=== PATIENT | female | born 1955 | race Caucasian/White ===

== ENCOUNTER 2016-12-12 05:44 | Inpatient (IN) | payer OTHER ==
[~2016-12-12] VITALS: Ht 167.6 cm; Wt 57.7 kg
[2016-12-12] VITALS (23 sets, daily range): BP systolic 86–146; BP diastolic 59–85; PULSE 72–84; RESP 15–22; Ht 167.6 cm; Wt 57.7 kg
[~2016-12-12 05:44] MED LIST: CEFAZOLIN 2 GM/50 ML (PMX) 50 ML IVPB ONE; LACTATED RINGER'S 1,000 ML IV* ONE
--- NOTE | 2016-12-12 06:51 | HPN ---
Date/Time of Note Date/Time of Note DATE: 12/12/16 TIME: 06:51 Interval H&P Admission Note Pt. seen H&P reviewed: No system changes JOSE LUIS OSBORNE MD Dec 12, 2016 06:51
[2016-12-12] MEDS ORDERED: FENTAnyl 50 MCG/ML VIAL ONE (06:55)
[2016-12-12] MEDS ORDERED: OMEP20CA16 PO (07:00)
[2016-12-12] MEDS ORDERED: LORA10TA3 PO (07:00)
[2016-12-12] MEDS ORDERED: GABA400C14 PO (07:00)
[2016-12-12] MEDS ORDERED: EZET10TA3 PO (07:00)
[2016-12-12] MEDS ORDERED: ALEN70TA30 PO (07:00)
[2016-12-12] MEDS ORDERED: ASPI-535 PO (07:00)
[2016-12-12] MEDS ORDERED: PRAV40TA76 PO (07:00)
[2016-12-12] MEDS ORDERED: DULO60CA6 PO (07:00)
[2016-12-12] MEDS ORDERED: MELO-110 PO (07:00)
[2016-12-12] MEDS ORDERED: PHENYLephrine (100 MCG/ML) 5ML SYG ONE ×3 (07:32→09:27)
[2016-12-12] MEDS ORDERED: BUPIVACAINE 0.25% (MPF) 10 ML 10 ML VIAL ONE (07:39)
[2016-12-12] MEDS ORDERED: GELATIN SIZE 100 SPONGE ONE (07:39)
[2016-12-12] MEDS ORDERED: THROMBIN 5000 UNIT VIAL ONE (07:40)
[2016-12-12] MEDS ORDERED: POLYMYXIN/BACITRACIN 1L IRRIG ONE (07:40)
--- NOTE | 2016-12-12 07:48 | RADRPT ---
PROCEDURE: XR Lumbar Spine one view. CLINICAL INDICATION: Low back pain. Intraoperative. TECHNIQUE: Prone portable cross-table lateral. COMPARISON: No prior studies are available for comparison. FINDINGS: For the purposes of this report, the last apparent true disc level is considered to be L5-S1. Based on this, the posterior needle markers are present at the L3-4 and L4-5 levels. IMPRESSION: 1. Intraoperative imaging as described above. RPTAT: QQ .Rd Lopez MD, MD Date Time Electronically viewed and signed by .Rd Lopez MD, MD on 12/12/2016 07:48 .R/
[2016-12-12] MEDS ORDERED: NEOSTIGMINE 3 MG/3 ML SYRINGE ONE (07:56)
[2016-12-12] MEDS ORDERED: GLYCOPYRROLATE 0.4 MG INJ ONE (07:56)
[2016-12-12] MEDS ORDERED: PROPOFOL 40 ML ONE (07:56)
[2016-12-12] MEDS ORDERED: SUCCINYLCHOLINE CHLORIDE 100 MG/5 ML SYG IV ONE (07:56)
[2016-12-12] MEDS ORDERED: ROCURONIUM 50 MG INJ ONE (07:56)
[2016-12-12] MEDS ORDERED: LIDOCAINE 2% (SDV) 5 ML INJ ONE (07:56)
[2016-12-12] MEDS ORDERED: FENTAnyl 50 MCG/ML VIAL IV PRN ×2 (08:00)
[2016-12-12] MEDS ORDERED: HYDROmorphONE (0.2 MG/ML) 10ML SYG IV PRN ×2 (08:00)
[2016-12-12] MEDS ORDERED: DIPHENHYDRAMINE 50 MG INJ IV PRN (08:00)
[2016-12-12] MEDS ORDERED: MEPERIDINE 25 MG INJ IV PRN (08:00)
[2016-12-12] MEDS ORDERED: ONDANSETRON 4 MG INJ IV PRN ×2 (08:00→10:30)
[2016-12-12] MEDS ORDERED: METOCLOPRAMIDE 10 MG INJ IV PRN (08:00)
[2016-12-12] MEDS ORDERED: SUGAMMADEX SODIUM 200 MG/2 ML VIAL IV ONE (09:23)
[2016-12-12] MEDS: HYDROmorphONE (0.2 MG/ML) 10ML SYG IV PRN ×2 (10:07→10:32)
[2016-12-12] MEDS ORDERED: HYDROmorphONE 0.2 MG/ML PCA ONE (10:23)
--- NOTE | 2016-12-12 10:23 | OPR ---
Date/Time of Note Date/Time of Note DATE: 12/12/16 TIME: 10:14 Operative Report Preoperative Diagnosis Lumbar spinal stenosis at L3-L4 and L5 Herniated lumbar disc L4-5 on the right Postoperative Diagnosis Same Operation/Procedure Performed Central decompressive laminectomy at L3 Central decompressive laminectomy at L4 Central decompressive laminectomy at L5 Microdiscectomy L4-5 on the right Medial facetectomy and foraminotomy L3-4 L4-5 and L5-S1 bilaterally Cosmetic wound closure (12 cm) Lateral localizing lumbar radiographs (2) Intraoperative nerve monitoring (2 hours) Surgeon: JOSE LUIS OSBORNE MD assistant professor of philosophy: LASHA WILLSON Anesthesia: general Estimated Blood Loss: 50 - 100 ml's Specimens Spinous processes of L3-L4 and L5 Disc L4-5 on the right Grafts/Implants None Complications: None JOSE LUIS OSBORNE MD Dec 12, 2016 10:23
[2016-12-12] MEDS: HYDROmorphONE 0.2 MG/ML PCA IV SCH ×2 (10:26→15:56)
[2016-12-12] MEDS ORDERED: CEPASTAT LOZENGE MT PRN (10:30)
[2016-12-12] MEDS ORDERED: HYDROCODONE/APAP (5/325) TAB PO PRN (10:30)
[2016-12-12] MEDS ORDERED: TRIMETHOBENZAMIDE 100 MG/ML VIAL IM PRN (10:30)
[2016-12-12] MEDS ORDERED: DIPHENHYDRAMINE 50 MG CAP PO PRN (10:30)
[2016-12-12] MEDS ORDERED: NALOXONE (0.4 MG/ML) INJ IV PRN (10:30)
[2016-12-12] MEDS ORDERED: NACL 0.9% 3 ML SYG IV SCH (10:30)
[2016-12-12] MEDS ORDERED: AL HYDROX/MG HYDROX/SIMETH 30 ML CUP PO PRN (10:30)
[2016-12-12] MEDS ORDERED: PROCHLORPERAZINE 10 MG TAB PO PRN (10:30)
[2016-12-12] MEDS ORDERED: DIAZEPAM 5 MG TAB PO PRN (10:30)
[2016-12-12] MEDS ORDERED: DIAZEPAM 5 MG/ML SYG IM PRN (10:30)
[2016-12-12] MEDS ORDERED: ACETAMINOPHEN 325 MG TAB PO PRN (10:30)
[2016-12-12] MEDS ORDERED: BETHANECHOL 25 MG TAB PO PRN (10:30)
[2016-12-12] MEDS ORDERED: ZOLPIDEM 5 MG TAB PO PRN (10:30)
[2016-12-12] MEDS: CEFAZOLIN 1 GM/50 ML (PMX) 50 ML IVPB SCH ×2 (13:15→19:23)
[2016-12-12] MEDS: DEXTROSE 5%-0.45% NACL 1,000 ML IV SCH ×2 (13:20→20:34)
--- NOTE | 2016-12-12 13:30 | RADRPT ---
PROCEDURE: Intraoperative XR. CLINICAL INDICATION: Intraoperative radiograph during lumbar laminectomy. TECHNIQUE: Spot intraoperative lateral lumbar x-ray image was provided. The images were reviewed on a high-resolution PACS workstation. COMPARISON: 12/12/2016 FINDINGS: Spot intraoperative lateral lumbar view were provided during lumbar laminectomy. The images demonst rate postoperative changes at L3-4, L4-5 and L5-S1 status post laminectomy. There is severe narrowin g of the L5-S1 discs with associated discogenic endplate changes. IMPRESSION: 1. Spot intraoperative lateral lumbar view during L3-4, L4-5 and L5-S1 laminectomy were provided. 2. Please see operative report of the same day for further information. RPTAT: HGAS .Jm Britton MD, Date Time Electronically viewed and signed by .Jm Britton MD, on 12/12/2016 13:29 .S/
--- NOTE | 2016-12-12 13:46 | CONS ---
Date/Time of Note Date/Time of Note DATE: 12/12/16 TIME: 13:41 Assessment/Plan Assessment/Plan Problems: (1) Status post lumbar laminectomy Status: Acute Comment: She is immediately postop and doing well. Continue careful observation support and rehabilitation (2) Osteoporosis Status: Chronic Comment: This is noted. Presently she is off of the alendronate. This should be resumed after she has gone through some brief rehabilitation and healing Qualifiers: Qualified Code: M81.0 - Age-related osteoporosis without current pathological fracture (3) Hyperlipidemia Status: Chronic Comment: Continue treatment. With omega-3 fish oil Qualifiers: Qualified Code: E78.2 - Mixed hyperlipidemia (4) Essential hypertension Status: Chronic Comment: Noted and stable. (5) Gastroesophageal reflux disease Status: Chronic Comment: Continue proton pump inhibitor therapy patient Qualifiers: Qualified Code: K21.9 - Gastroesophageal reflux disease without esophagitis Consultation Date/Type/Reason Admit Date/Time Dec 12, 2016 at 05:44 Date of Consultation: Dec 12, 2016 Type of Consultation: Internal medicine Reason for Consultation Postop from lumbar laminectomy; multiple medical problems Referring Provider: JOSE LUIS OSBORNE MD Hx of Present Illness Charming 61-year-old [place] woman who speaks [place] lying in bed postop. She reports she is doing well. Constitutional: no complaints (No fevers chills or sweats) Eyes: no complaints ENT: no complaints Respiratory: no complaints (Specifically denies shortness of breath) Cardiovascular: no complaints (Specifically denies any complaint) Gastrointestinal: no complaints Genitourinary: no complaints Musculoskeletal: no complaints Skin: no complaints Neurologic: no complaints Past Medical History Osteoporosis; mixed hyperlipidemia; lumbar disc disease with radiculopathy and sciatica; gastroesophageal reflux disease; peripheral neuropathy Past Surgical History Past Surgical Hx: no surgical history Family History Significant Family History: no pertinent family hx Social History Alcohol Use: none Smoking Status: Never smoker Drug Use: none Exam/Review of Systems Vital Signs Vitals Vital Signs Date Time Temp Pulse Resp B/P Pulse Ox O2 Delivery O2 Flow Rate FiO2 12/12/16 11:21 98.8 83 18 121/75 100 12/12/16 10:51 Nasal Cannula 2.0 Exam Constitutional: alert, oriented Head: atraumatic, normocephalic Eyes: EOMI, nl conjunctiva, nl lids, nl sclera Neck: non-tender, supple Respiratory: clear to auscultation, normal air movement Cardiovascular: nl pulses, regular rate and rhythm Gastrointestinal: nl liver, spleen, non-tender, soft Musculoskeletal: other (Back pain and presently limited motion immediately postop) Extremities: normal pulses Neurological: COOK RAILROAD II-XII intact, nl mental status, nl speech, nl strength Medications Medications Current Medications Dextrose/Sodium Chloride (D5-1/2ns) 1,000 ml @ 100 mls/hr Q10H IV Last administered on 12/12/16 13:20; Admin Dose 100 MLS/HR; Start 12/12/16 at 10:11 Acetaminophen/ Hydrocodone Bitart ([place] (5/325)) 1 tab Q4H PRN PO PAIN LEVEL 1 -5; Start 12/12/16 at 10:30 Acetaminophen/ Hydrocodone Bitart 2 tab 2 tab Q4H PRN PO PAIN LEVEL 6-10; Start 12/12/16 at 10:30 Cefazolin Sodium (Ancef 1 Gm/50 ml (Pmx)) 50 ml @ 100 mls/hr Q6 IVPB Last administered on 12/12/16 13:15; Admin Dose 100 MLS/HR; Start 12/12/16 at 12:00 ; Stop 12/13/16 at 06:29 Zolpidem Tartrate (Ambien) 5 mg HS PRN PO INSOMNIA; Start 12/12/16 at 10:30 Prochlorperazine (Compazine) 10 mg Q4H PRN PO NAUSEA AND/OR VOMITING; Start at 10:30 Trimethobenzamide HCl (Tigan) 200 mg Q4H PRN IM NAUSEA AND/OR VOMITING; Start 12/12/16 at 10:30 Ondansetron HCl (Zofran Inj) 4 mg Q6H PRN IV NAUSEA AND/OR VOMITING; Start at 10:30 Al Hydrox/Mg Hydrox/Simethicone (Mag-Al Plus) 15 ml Q4H PRN PO CONSTIPATION; Start 12/12/16 at 10:30 Docusate Sodium (Colace) 100 mg BID PO ; Start 12/13/16 at 09:00 Acetaminophen (Tylenol Tab) 650 mg Q4H PRN PO TEMP GREATER THAN 101F OR RECIO; Start 12/12/16 at 10:30 Ascorbic Acid (Vitamin C) 1,000 mg BID PO ; Start 12/13/16 at 09:00 Ferrous Sulfate (Ferrous Sulfate (Ec)) 325 mg TID PO ; Start 12/13/16 at 09:00 Ranitidine HCl (Zantac) 150 mg BID PO ; Start 12/12/16 at 21:00 Diazepam (Valium) 5 mg Q4H PRN PO MUSCLE SPASMS; Start 12/12/16 at 10:30 Diazepam (Valium) 5 mg Q4H PRN IM MUSCLE SPASMS; Start 12/12/16 at 10:30 Phenol (Cepastat Lozenge) 1 lozenge PRN PRN MT SORE THROAT; Start 12/12/16 at 10:30 Bethanechol Chloride (Urecholine) 25 mg PRN PRN PO UNABLE TO VOID; Start at 10:30 Diphenhydramine HCl (Benadryl) 50 mg Q6H PRN PO PRURITUS; Start 12/12/16 at 10: 30 Hydromorphone HCl (Dilaudid FINANCE ADMIN) Q4PCA IV Last administered on 12/12/16t 10:26 ; Admin Dose 6 MG; Start 12/12/16 at 10:30 Naloxone HCl (Narcan) 0.2 mg Q2M PRN IV RR 8 BREATHS/MIN OR LESS; Start at 10:30 Duloxetine HCl (Cymbalta) 60 mg DAILY PO ; Start 12/13/16 at 09:00; Status UNV EZETIMIBE (Zetia) 10 mg DAILY PO ; Start 12/13/16 at 09:00; Status UNV Gabapentin (Neurontin) 400 mg TID PO ; Start 12/12/16 at 21:00; Status UNV Loratadine (Claritin) 10 mg DAILY PO ; Start 12/13/16 at 09:00; Status UNV Pantoprazole (Protonix Tab) 40 mg DAILY@06 PO ; Start 12/13/16 at 06:00; Status UNV Atorvastatin Calcium (Lipitor) 20 mg HS PO ; Start 12/12/16 at 21:00; Status UNV CLAIRE STINSON MD Dec 12, 2016 13:45
--- NOTE | 2016-12-12 14:09 | OPR ---
DATE OF OPERATION: 12/12/2016 PREOPERATIVE DIAGNOSES: 1. Lumbar spinal stenosis at L3, L4, and L5. 2. Herniated disk, L4-5 on the right. POSTOPERATIVE DIAGNOSES: 1. Lumbar spinal stenosis at L3, L4, and L5. 2. Herniated disk, L4-5 on the right. OPERATION PERFORMED: 1. Central decompressive laminectomy at L3. 2. Central decompressive laminectomy at L4. 3. Central decompressive laminectomy at L5. 4. Microdiskectomy, L4-5 on the right. 5. Medial facetectomy and foraminotomy, L3-4, L4-5, L5-S1 bilaterally. 6. Cosmetic wound closure (12 cm). 7. Lateral localized lumbar radiographs (2). 8. Intraoperative spinal cord monitoring (2 hours). SURGEON: Cash Ray MD SALVATIONIST Kourtney Sanchez PA-C ANESTHESIA: General endotracheal. ANESTHESIOLOGIST: Dr. Garcia ESTIMATED BLOOD LOSS: 90 mL, none replaced. DRAINS: Two medium Hemovac drains employed. COMPLICATIONS: None. PERTINENT HISTORY AND PHYSICAL: This is a 61-year-old female with persistent back and lower extremity complaints, right greater than left, which have been unrelieved by conservative management. She has undergone a number of diagnostic studies including an MRI of the lumbar spine which demonstrated multilevel spinal stenosis most severe at L4-L5 with right disk protrusion at that level. Treatment options were discussed with the patient, and she elected to proceed with surgery. OPERATIVE FINDINGS AT SURGERY: Multilevel spinal stenosis at L3, L4, and L5 was confirmed along with a small to moderate central and right paracentral herniation of the L4-5 disk. The baseline intraoperative nerve monitoring revealed a decrease in the left L3 potential of 30%, the L4 potentials bilaterally of 40% and the L5 potentials bilaterally of 40%. These all returned to normal at the completion of surgery. OPERATIVE PROCEDURE: With the patient in supine position after satisfactory induction of general endotracheal anesthesia by Dr. Garcia, the patient was turned to the prone kneeling position onto the Bracey frame. All pressure points were carefully padded. Back was prepped and draped in usual sterile fashion. Athrombic pumps were applied to the legs below the knees to prevent venous stasis during and after procedure. An indwelling Gonzalez catheter was also placed preoperatively to facilitate bladder drainage during and after the procedure. Two spinal needles were placed next to what was felt to be the L4 and L5 spinous processes, and lateral roentgenogram was taken which confirmed anatomic localization. A 12 cm incision was then carried out midline from L3 to sacrum through skin and subcutaneous tissue to the deep fascia after the skin was infiltrated with 0.25% Marcaine without epinephrine for postoperative shoe. Superficial retractors were placed and hemostasis secured with electrocautery. Throughout the procedure, copious amounts of antibacterial irrigating solution were used to periodically irrigate the wound. The fascia was incised in midline with a hot knife and a bilateral subperiosteal dissection carried out from L3 to the sacrum. Deep retractors were placed and deep hemostasis secured with electrocautery. A second intraoperative radiograph was taken with Nadya clamps placed in what was felt to be the spinous process of L3, L4, and L5. This was confirmed with second x-ray. A central decompressive laminectomy at L5, L4, and then L3 was then carried out using a [place] right-angle bone rongeur, Leksell rongeur, Kerrison punches, and curettes. Ligamentum flavum was incised with sharp dissection. The operating microscope was then moved into place. Medial facetectomy and foraminotomy was accomplished at L3-4, L4-5, and L5-S1 bilaterally using small hand osteotome, mallet, Kerrison punches, and curettes. This having been accomplished, attention was turned to the right L4-L5 disk where the L5 nerve root was mobilized medially and protected with D'Bonnie nerve root retractor using microdissection technique. This revealed a herniation of the L4-5 disk centrally and to the right of midline. A 15 blade knife was used to cut a rectangular window in the annulus and posterior longitudinal ligament, and multiple degenerative disk fragments were harvested with pituitary rongeurs and sent to laboratory for pathologic study. Additional fragments were harvested using Dianne curettes. A thorough search of the floor of the canal was made with an arthroscopic probe. No additional fragments were encountered. The epidural hemostasis was secured with bipolar electrocautery on low setting. The anesthesiologist was then asked to perform a Valsalva maneuver at 40 mmHg, and no spinal fluid leak was noted. The wound was then closed in layers over 2 medium Hemovac drains; one below the fascia, one above the fascia. Using #1 Vicryl Stratafix sutures on the deep para-lumbar musculature and deep fascia of the back, 2-0 Stratafix sutures in subcu tissue, and a 4-0 Vicryl subcuticular cosmetic closing suture on the skin. Dermabond and sterile compressive dressings were applied. The patient, having tolerated the procedure well, was then turned to the supine position onto her bed and extubated by Dr. Garcia. She was transported to recovery room in satisfactory condition. At the conclusion of the procedure, sponge, instrument, and needle counts were all correct. NEED FOR TANK BOTTOM ASSEMBLER: During this spinal surgical procedure, my hospital nursing assistant was used to retract and protect the spinal nerves and dural sac. My hospital nursing assistant also employed the suction catheters to evacuate blood from the surgical field to improve visualization of the neural structures. The hospital nursing assistant was medically necessary to facilitate the completion of the surgery in a safe and expeditious manner. [facility] regulations, as well as hospital bylaws, preclude the use of non-licensed health care personnel such as operating room technicians, to perform these functions. Throughout the procedure, neural monitoring was carried out by [employer] [facility] including EMG, SSEP, and MEP monitoring of the L3, L4, L5, and S1 nerve roots bilaterally along with spinal cord potentials. These were interpreted by a neurologist employed by [employer]. Dictated By: CASH DIMAS/ROSA Conf#: [id number] DID#: [id number] CC: CLAIRE STINSON MD;*EndCC* MTDD
[2016-12-12] MEDS: RANITIDINE 150 MG TAB PO SCH (20:34)
[2016-12-12] MEDS: FISH OIL 1,000 MG CAP PO SCH (20:34)
[2016-12-12] MEDS: GABAPENTIN 400 MG CAP PO SCH (20:35)
[2016-12-12] MEDS ORDERED: ATORVASTATIN 20 MG TAB PO SCH (21:00)
[2016-12-13] VITALS: BP 107/56; RESP 18
[2016-12-13] MEDS: CEFAZOLIN 1 GM/50 ML (PMX) 50 ML IVPB SCH ×2 (00:08→05:24)
[2016-12-13 05:21] LABS: HEMATOCRIT 32.5 % (37.0-47.0)
[2016-12-13 05:30] VITALS: BP 97/53; PULSE 74; RESP 17
[2016-12-13 05:50] LABS: CALCIUM 8.4 mg/dl (8.4-10.2); CREATININE 0.56 mg/dl (0.44-1.00); POTASSIUM 3.6 mmol/L (3.5-5.1)
[2016-12-13] MEDS ORDERED: PANTOPRAZOLE (EC) 40 MG TAB PO SCH (06:00)
[2016-12-13] MEDS: DEXTROSE 5%-0.45% NACL 1,000 ML IV SCH (06:11)
--- NOTE | 2016-12-13 07:16 | PN ---
Date/Time of Note Date/Time of Note DATE: 12/13/16 TIME: 07:09 Assessment/Plan Lines/Catheters IV Catheter Type (from Nrsg): Peripheral IV Gonzalez in Place (from Nrsg): Yes Subjective 24 Hr Interval Summary Patient is postop day #1 following a decompressive laminectomy from L3 to the sacrum. She is resting comfortably in bed. Neurovascular structures are intact distally. A.m. labs are satisfactory. She had minimal drainage from her Hemovac, and it was discontinued. Her incision is clean and dry and was redressed. Physical therapy will mobilize her as tolerated, and she may be able to go home later today if cleared by physical therapy. She was given strict discharge precautions and instructions as well as follow-up arrangements. Exam/Review of Systems Vital Signs Vitals Vital Signs Date Time Temp Pulse Resp B/P Pulse Ox O2 Delivery O2 Flow Rate FiO2 12/13/16 05:56 17 12/13/16 05:30 98.0 74 97/53 100 Nasal Cannula 2.0 Intake and Output 12/12/16 12/12/16 12/13/16 15:00 23:00 07:00 Intake Total 1800 ml 850 ml 1700 ml Output Total 670 ml 920 ml 2805 ml Balance 1130 ml -70 ml -1105 ml Results Result Diagram: 12/13/16 0425 12/13/16 0425 JOSE LUIS OSBORNE MD Dec 13, 2016 07:16
[2016-12-13] MEDS: HYDROCODONE/APAP (5/325) TAB PO PRN ×2 (07:44→15:38)
[2016-12-13] MEDS ORDERED: BETHANECHOL 25 MG TAB PO PRN (08:00)
[2016-12-13] MEDS ORDERED: DULOXETINE 30 MG CAP DR PO SCH (09:00)
[2016-12-13] MEDS ORDERED: LORATADINE 10 MG TAB PO SCH (09:00)
[2016-12-13] MEDS ORDERED: EZETIMIBE 10 MG TAB PO SCH (09:00)
[2016-12-13] MEDS ORDERED: DOCUSATE SODIUM 100 MG CAP PO SCH (09:00)
[2016-12-13] MEDS ORDERED: ASCORBIC ACID 500 MG TAB PO SCH (09:00)
[2016-12-13 09:11] VITALS: BP 100/58; RESP 19
[2016-12-13] MEDS: RANITIDINE 150 MG TAB PO SCH (09:48)
[2016-12-13] MEDS: FERROUS SULFATE (EC) 325 MG TAB PO SCH ×2 (09:49→15:34)
[2016-12-13] MEDS: GABAPENTIN 400 MG CAP PO SCH ×2 (09:49→15:34)
[2016-12-13] MEDS: FISH OIL 1,000 MG CAP PO SCH (09:49)
[2016-12-13 10:45] LABS: ADD UMIC NO; UR ASCORBIC ACID NEGATIVE (NEGATIVE); UR BILIRUBIN (Dip) NEGATIVE (NEGATIVE); UR BLOOD (Dip) NEGATIVE (NEGATIVE); UR CLARITY CLEAR (CLEAR); UR COLOR COLORLESS (YELLOW); UR GLUCOSE (Dip) NEGATIVE (NEGATIVE); UR KETONES (Dip) NEGATIVE (NEGATIVE); UR LEUKOCYTE ESTERASE (Dip) NEGATIVE Leu/ul (NEGATIVE); UR NITRITE (Dip) NEGATIVE (NEGATIVE); UR SPECIFIC GRAVITY (Dip) 1.003 (1.003-1.030); UR TOTAL PROTEIN (Dip) NEGATIVE (NEGATIVE); UR UROBILINOGEN (Dip) NEGATIVE (NEGATIVE)
--- NOTE | 2016-12-13 13:11 | CONS ---
Date/Time of Note Date/Time of Note DATE: 12/13/16 TIME: 12:58 Consultation Date/Type/Reason Admit Date/Time Dec 12, 2016 at 05:44 Initial Consult Date 12/13/16 Type of Consultation: Anesthesiology Reason for Consultation Follow up Referring Provider: JOSE LUIS OSBORNE MD 24 HR Interval Summary Free Text/Dictation Pt seen and examined at bedside is POD#1 s/p L3-5 Decompression Laminectomy. Pt states she is doing well and has minimal pain. She is walking around and in good spirits. No N/V/D/C/RECIO. Will continue to follow. Constitutional: improved, no complaints Exam/Review of Systems Vital Signs Vitals Vital Signs Date Time Temp Pulse Resp B/P Pulse Ox O2 Delivery O2 Flow Rate FiO2 12/13/16 09:11 98.9 79 19 100/58 100 12/13/16 05:30 Nasal Cannula 2.0 Intake and Output 12/12/16 12/12/16 12/13/16 14:59 22:59 06:59 Intake Total 1800 ml 850 ml 1700 ml Output Total 670 ml 920 ml 2805 ml Balance 1130 ml -70 ml -1105 ml Results Result Diagram: 12/13/16 0425 12/13/16 0425 Results 24 hrs Laboratory Tests Test 12/13/16 04:25 12/13/16 10:10 Hemoglobin 10.0 L Hematocrit 32.5 L Sodium Level 142 Potassium Level 3.6 Chloride Level 107 Carbon Dioxide Level 28 Anion Gap 11 Blood Urea Nitrogen 6 L Creatinine 0.56 Glucose Level 107 Calcium Level 8.4 Urine Color COLORLESS Urine Clarity CLEAR Urine pH 6.0 Urine Specific [place] 1.003 Urine Ketones NEGATIVE Urine Nitrite NEGATIVE Urine Bilirubin NEGATIVE Urine Urobilinogen NEGATIVE Urine Leukocyte Esterase NEGATIVE Urine Hemoglobin NEGATIVE Urine Glucose NEGATIVE Urine Total Protein NEGATIVE Medications Medications Current Medications Dextrose/Sodium Chloride (D5-1/2ns) 1,000 ml @ 100 mls/hr Q10H IV Last administered on 12/12/16t 20:34; Admin Dose 100 MLS/HR; Start 12/12/16 at 10:11 Acetaminophen/ Hydrocodone Bitart ([place] (5/325)) 1 tab Q4H PRN PO PAIN LEVEL 1 -5; Start 12/12/16 at 10:30 Acetaminophen/ Hydrocodone Bitart ([place] (5/325)) 2 tab Q4H PRN PO PAIN LEVEL 6 -10 Last administered on 12/13/16 07:44; Admin Dose 2 TAB; Start 12/12/16 at 10 :30 Zolpidem Tartrate (Ambien) 5 mg HS PRN PO INSOMNIA; Start 12/12/16 at 10:30 Prochlorperazine (Compazine) 10 mg Q4H PRN PO NAUSEA AND/OR VOMITING; Start at 10:30 Trimethobenzamide HCl (Tigan) 200 mg Q4H PRN IM NAUSEA AND/OR VOMITING; Start 12/12/16 at 10:30 Ondansetron HCl (Zofran Inj) 4 mg Q6H PRN IV NAUSEA AND/OR VOMITING Last administered on 12/12/16 16:03; Admin Dose 4 MG; Start 12/12/16 at 10:30 Al Hydrox/Mg Hydrox/Simethicone (Mag-Al Plus) 15 ml Q4H PRN PO CONSTIPATION; Start 12/12/16 at 10:30 Docusate Sodium (Colace) 100 mg BID PO Last administered on 12/13/16 09:48; Admin Dose 100 MG; Start 12/13/16 at 09:00 Acetaminophen (Tylenol Tab) 650 mg Q4H PRN PO TEMP GREATER THAN 101F OR RECIO; Start 12/12/16 at 10:30 Ascorbic Acid (Vitamin C) 1,000 mg BID PO Last administered on 12/13/16 09:49 ; Admin Dose 1,000 MG; Start 12/13/16 at 09:00 Ferrous Sulfate (Ferrous Sulfate (Ec)) 325 mg TID PO Last administered on 09:49; Admin Dose 325 MG; Start 12/13/16 at 09:00 Ranitidine HCl (Zantac) 150 mg BID PO Last administered on 12/13/16 09:48; Admin Dose 150 MG; Start 12/12/16 at 21:00 Diazepam (Valium) 5 mg Q4H PRN PO MUSCLE SPASMS; Start 12/12/16 at 10:30 Diazepam (Valium) 5 mg Q4H PRN IM MUSCLE SPASMS; Start 12/12/16 at 10:30 Phenol (Cepastat Lozenge) 1 lozenge PRN PRN MT SORE THROAT; Start 12/12/16 at 10:30 Bethanechol Chloride (Urecholine) 25 mg PRN PRN PO UNABLE TO VOID; Start at 10:30 Diphenhydramine HCl (Benadryl) 50 mg Q6H PRN PO PRURITUS; Start 12/12/16 at 10: 30 Hydromorphone HCl (Dilaudid PIT [employer]W SUPPORT WORKER) Q4PCA IV Last administered on 12/12/16 15:56 ; Admin Dose 6 MG; Start 12/12/16 at 10:30 Naloxone HCl (Narcan) 0.2 mg Q2M PRN IV RR 8 BREATHS/MIN OR LESS; Start at 10:30 Duloxetine HCl (Cymbalta) 60 mg DAILY PO Last administered on 12/13/16 09:49; Admin Dose 60 MG; Start 12/13/16 at 09:00 EZETIMIBE (Zetia) 10 mg DAILY PO Last administered on 12/13/16 09:49; Admin Dose 10 MG; Start 12/13/16 at 09:00 Gabapentin (Neurontin) 400 mg TID PO Last administered on 12/13/16 09:49; Admin Dose 400 MG; Start 12/12/16 at 21:00 Loratadine (Claritin) 10 mg DAILY PO Last administered on 12/13/16 09:48; Admin Dose 10 MG; Start 12/13/16 at 09:00 Pantoprazole (Protonix Tab) 40 mg DAILY@06 PO Last administered on 12/13/16 05 :24; Admin Dose 40 MG; Start 12/13/16 at 06:00 Atorvastatin Calcium (Lipitor) 20 mg HS PO Last administered on 12/12/16 20:35 ; Admin Dose 20 MG; Start 12/12/16 at 21:00 Fish Oil (Fish Oil) 2,000 mg BID PO Last administered on 12/13/16 09:49; Admin Dose 2,000 MG; Start 12/12/16 at 21:00 Bethanechol Chloride (Urecholine) 25 mg PRN PRN PO UNABLE TO VOID; Start at 08:00 ANAMARIA EVANS Dec 13, 2016 13:10
[2016-12-13] MEDS ORDERED: FER325 PO (15:50)
--- NOTE | 2016-12-13 15:52 | PDOCDIS ---
Discharge Instructions DIAGNOSIS Discharge Diagnosis Lumbar spinal stenosis; status post lumbar laminectomy; essential hypertension; hyperlipidemia; gastroesophageal reflux disease CONDITION Patient Condition: Fair HOME CARE INSTRUCTIONS: Diet Instructions: Regular ACTIVITY: Activity Restrictions: Slowly Increase Activity Rest between Activity Avoid heavy lifting Do not Drive Bathing Restrictions: Shower FOLLOW UP/APPOINTMENTS Follow-up Plan Follow-up with surgeon in 1-2 weeks postop CLAIRE STINSON MD Dec 13, 2016 15:52
== END 2016-12-13 16:30 | disposition home or self-care (01) | DRG 520 ==
LOC: REC 05:44 → MS1 10:44
PROVIDERS: ADMIT Orthopaedic Surgery; ATTEND Orthopaedic Surgery
PROC: 01NB0ZZ Release Lumbar Nerve, Open Approach (ICD-10-PCS; 2016-12-12)
PROC: 4A11X4G Monitoring of Peripheral Nervous Electrical Activity, Intraoperative, External Approach (ICD-10-PCS; 2016-12-12)
PROC: 0SB20ZZ Excision of Lumbar Vertebral Disc, Open Approach (ICD-10-PCS; principal; 2016-12-12 07:00)
DX: M48.06 Spinal stenosis, lumbar region (principal); E78.5 Hyperlipidemia, unspecified; M51.26 Other intervertebral disc displacement, lumbar region; M51.36 Other intervertebral disc degeneration, lumbar region; M81.0 Age-related osteoporosis without current pathological fracture; K21.9 Gastro-esophageal reflux disease without esophagitis
CPT/HCPCS: 72020; 80048; 81003; 85014; 85018; 86850; 86900; 86901; 86920; 87086; 88304; 88311; 97116; 97163; 97530; J0690; J1170; J2370; J2405; J2710; J3010; J7042; J7120; J7999

== ENCOUNTER 2018-01-17 12:06 | Inpatient (IN) | END 2018-01-18 13:30 | disposition home or self-care (01) | DRG 473 ==